=== PATIENT | male | born 1970 | race Caucasian/White ===

== ENCOUNTER 2017-04-12 05:00 | Day surgery (SDC) | payer BC ==
[2017-04-01 14:45] VITALS: BMI 41.0
[~2017-04-12] VITALS: Ht 162.6 cm; Wt 118.0 kg
[2017-04-12 05:34] VITALS: BP 141/89; PULSE 72; TEMP 37; O2SAT 96; Ht 162.6 cm; Wt 118.0 kg
[2017-04-12] MEDS ORDERED: LACTATED RINGER'S 1000ML 1,000 ML IV SCH (06:00)
[2017-04-12] MEDS ORDERED: PROPOFOL IV EMULSION 10 MG/ML 20 ML VIAL IV ONE ×2 (06:34→07:33)
[2017-04-12] MEDS ORDERED: MIDAZOLAM HCL 1 MG/ML 2ML VIAL ONE (06:34)
[2017-04-12] MEDS ORDERED: LIDOCAINE HCL 2% 2 ML VIAL (20MG/ML) ONE (06:34)
--- NOTE | 2017-04-12 06:59 | History & Physical Bridge Note ---
H&P Re-Evaluation Bridge Note: I have examined the patient, reviewed the History & Physical and in the interval since the performance of the History & Physical I have noted the following changes of clinical significance: No changes noted
[2017-04-12] MEDS ORDERED: FENTANYL CITRATE INJ 50 MCG/1 ML 2 ML VIAL ONE (07:23)
--- NOTE | 2017-04-12 07:45 | GI REPORT ---
Procedure Date: 04/12/2017 7:08 AM Procedure: Colonoscopy Indications: Screening for colorectal malignant neoplasm Medicines: Propofol per Anesthesia Complications: No immediate complications. Estimated Blood Loss: Estimated blood loss: none. Procedure: Pre-Anesthesia Assessment: - Prior to the procedure, a History and Physical was performed, and patient medications, allergies and sensitivities were reviewed. The patient's tolerance of previous anesthesia was reviewed. - The risks and benefits of the procedure and the sedation options and risks were discussed with the patient. All questions were answered and informed consent was obtained. - Patient identification and proposed procedure were verified prior to the procedure by the physician, the nurse, the anesthesiologist and the antenna installer. The procedure was verified in the pre-procedure area in the endoscopy suite. - ASA Grade Assessment: II - A patient with mild systemic disease. After I obtained informed consent, the scope was passed under direct vision. Throughout the procedure, the patient's blood pressure, pulse, and oxygen saturations were monitored continuously. The Scope was introduced through the anus and advanced to the cecum, identified by appendiceal orifice and ileocecal valve. The colonoscopy was performed without difficulty. The patient tolerated the procedure well. The quality of the bowel preparation was good. Findings: The digital rectal exam was normal. A polyp was found at 30 cm proximal to the anus. The polyp was semi-pedunculated. The polyp was removed with a hot snare. Resection and retrieval were complete. Impression: - One polyp at 30 cm proximal to the anus, removed with a hot snare. Resected and retrieved. Recommendation: - Await pathology results. - Repeat colonoscopy for surveillance based on pathology results. - Return to my office in 2 weeks. Teto Power M.D. Teto Power MD 04/12/2017 7:45:15 AM This report has been signed electronically. Note Initiated On: 04/12/2017 7:08 AM I attest to the content of the Intraoperative Record and orders documented therein, exceptions below
--- NOTE | 2017-04-12 08:20 | Anesthesiology Progress Note ---
Anesthesia Post Op Note Date & Time Apr 12, 2017 at 08:19 Vital Signs Pain Intensity: 0 Vital Signs Past 12 Hours Date Time Temp Pulse Resp B/P (MAP) Pulse Ox O2 Delivery O2 Flow Rate FiO2 04/12/17 08:07 36.8 74 18 120/66 99 Room Air 04/12/17 07:57 80 18 110/73 100 Room Air Oxymask 04/12/17 07:47 37.1 82 20 135/93 100 Oxymask 10 04/12/17 05:34 37 72 18 141/89 (106) 96 Room Air Notes Mental Status: alert / awake / arousable, participated in evaluation Pt Amnestic to Procedure: Yes Nausea / Vomiting: adequately controlled Pain: adequately controlled Airway Patency, RR, SpO2: stable & adequate BP & HR: stable & adequate Hydration State: stable & adequate Anesthetic Complications: no major complications apparent
[2017-04-12] MEDS ORDERED: EpHEDrine SULFATE INJ 50 MG/ML AMP IV PRN (08:30)
[2017-04-12] MEDS ORDERED: PATIENT'S ALLERGY INFO NEEDS ENTERED SCH (08:30)
[2017-04-12] MEDS ORDERED: ATROPINE SULFATE 0.1 MG/ML 5ML SYR IV PRN (08:30)
[2017-04-12 08:40] VITALS: BP 121/79; PULSE 72; TEMP 36.6; O2SAT 99
--- NOTE | 2017-04-12 08:43 | Discharge Instructions ---
Endoscopy Patient Instructions Date / Procedure(s) Performed Apr 12, 2017. Colonoscopy Discharge Date / Findings Apr 12, 2017. One polyp Provider Instructions Activity Restrictions - No exercising or heavy lifting for 24 hours. - Do not drink alcohol the day of the procedure. - Do not drive a car or operate machinery until the day after the procedure. - Do not make any important decisions or sign important papers in 24 hours after the procedure. Following Day: - Return to full activity which may include returning to work/school. Diet Start your diet with liquids and light foods (jello, soup, juice, toast). Then eat your usual diet if not nauseated. Treatment For Common After Affects For mild abdominal pain, bloating, or excessive gas: - Rest - Eat lightly - Lie on right side Follow-Up Information Follow-up with as scheduled Anesthesia Information What You Should Know You have had a procedure that required some medicine to reduce anxiety and discomfort. This treatment is called moderate sedation. After receiving the treatment, you may be sleepy, but you will be able to breathe on your own. The effects of the treatment may last for several hours. Follow these instructions along with Activity/Diet recommendations noted above: * Do NOT do anything where dizziness or clumsiness would be dangerous. * Rest quietly at home today, then you can be up and about tomorrow. * Have a responsible person stay with you the rest of today. * You may have had an I.V. today. If so, you may take the dressing off later today. Recommendations Call your doctor if: * Trouble breathing * Continuous vomiting for more than 24 hours * Temperature above 101 degrees * Severe abdominal pain or bloating * Pain not relieved by pain medicine ordered * There is increased drainage or redness from any incision * A large amount of rectal bleeding greater than 2-3 tablespoons. (If you had a polyp/s removed or have hemorrhoids, a small amount of blood - from the rectum is to be expected.) * You have any unanswered questions or concerns. IN THE EVENT OF A SERIOUS EMERGENCY, GO TO THE NEAREST EMERGENCY ROOM Your discharge instructions were prepared by provider Teto Power. Patient Instructions Signature Page Ki Mustafa Patient (or Guardian) Signature/Date: I have read and understand the instructions given to me by my caregivers. Caregiver/RN/Doctor Signature/Date: The above-named patient and/or guardian has received patient instructions on this date. + Original Patient Signature Page (only) stays with chart. Please make copy for patient.
[2017-04-12 09:10] VITALS: BP 139/83; PULSE 74; O2SAT 99
== END 2017-04-12 09:20 | disposition home or self-care (01) ==
LOC: C.ACU 05:00
PROVIDERS: ATTEND Surgery
DX: Z12.11 Encounter for screening for malignant neoplasm of colon (principal); D12.6 Benign neoplasm of colon, unspecified; E66.01 Morbid (severe) obesity due to excess calories; Z68.41 Body mass index [BMI] 40.0-44.9, adult; Z98.890 Other specified postprocedural states; Z83.3 Family history of diabetes mellitus; Z80.0 Family history of malignant neoplasm of digestive organs